=== PATIENT | male | born 2000 | race African-American/Black ===

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

== ENCOUNTER 2023-10-27 11:30 | Emergency (ER) | payer OTHER, SELFPAY ==
[2023-10-27] VITALS (17 sets, daily range): BP systolic 101–142; BP diastolic 52–101; PULSE 66–115; RESP 11–24; TEMP 36.6; O2SAT 96–100
--- NOTE | 2023-10-27 11:51 | PC.NURSE ---
Mother states pt has had a lot of changes the last 2 months. 2 family members , pt had finals. Mother states pt will have staring episodes where she feels he is looking straight thru her. Mother reports pt has never had these symptoms before.
[2023-10-27 12:13] LABS: Basophils Absolute Auto 0.1 K/mm3 (0.0-0.1); Basophils Percent Auto 0.8 % (0.2-1.2); Eosinophils Percent Auto 0.3 % (0-4.4); Hematocrit 42.6 % (42.0-52.0); Hemoglobin 14.5 g/dL (14.0-18.0); Immature Granulocyte Absolute 0.02 K/mm3 (0.00-0.031); Immature Granulocyte Percent A 0.3 % (0-0.5); Lymphocytes Absolute Auto 1.48 K/mm3 (0.9-3.2); Lymphocytes Percent Auto 18.5 % (18.3-44.2); Mean Corpuscular Volume 85.2 fl (80-100); Mean Platelet Volume 12.1 fl (7.4-10.4); Monocytes Absolute Auto 0.7 K/mm3 (0.1-0.6); Monocytes Percent Auto 9.3 % (2.6-8.5); Neutrophils Absolute Auto 5.7 K/mm3 (1.3-6.7); Neutrophils Percent Auto 70.8 % (45.5-73.1); Platelet Count Result 276 k/mm3 (150-375)
[2023-10-27 12:24] LABS: Ethanol < 10 mg/dL (<10)
[2023-10-27 12:27] LABS: Alanine Aminotransferase 18 U/L (6-50); Albumin Level 4.8 g/dL (3.5-5.1); Alkaline Phosphatase 72 U/L (38-126); Anion Gap 10 mmol/L (8-16); Aspartate Amino Transferase 28 U/L (17-59); Bilirubin,Total 0.8 mg/dL (0.2-1.3); Blood Urea Nitrogen 8 mg/dL (9-20); Calcium 9.8 mg/dL (8.4-10.2); Carbon Dioxide 27 mmol/L (22-30); Chloride 106 mmol/L (98-107); Estimated CRCL calculation 104 ml/min; Estimated Glomerular Filt Rate > 60; Glucose 99 mg/dL (65-110); Potassium 3.7 mmol/L (3.4-5.0); Sodium 143 mmol/L (137-145)
[2023-10-27 12:34] LABS: Appearance Urine Cloudy (Clear); Bacteria Urine None Seen /hpf; Bilirubin Urine 1+ (Negative); Blood Urine Negative (Negative); Color Urine Dark Yellow (Yellow); Glucose Urine UA Negative (Negative); Ketones Urine 1+ mg/dL (Negative); Leukocyte Esterase Ur Trace LEU/UL (Negative); Nitrate Urine Negative (Negative); Protein Urine 2+ mg/dL (Negative); RBC Urine 0-2 /hpf (0-2); Specific Grav Ur 1.035 (1.001-1.035); Squamous Epithelial Cell Urine None seen /hpf (Few); WBC Urine 0-5 /hpf; pH Urine 7.5 (5.0-9.0)
[2023-10-27 12:44] LABS: Barbiturate Screen Urine Negative (Negative); Benzodiazepines Screen Urine Negative (Negative)
[2023-10-27 12:45] LABS: Amphetamine Screen Urine Negative (Negative); Cannabinoid Screen Urine Negative (Negative); Cocaine Screen Urine Negative (Negative); Opiate Screen Urine Negative (Negative); Phencyclidine Screen Urine Negative (Negative)
[2023-10-27 12:51] LABS: Methadone Screen Urine Negative (Negative)
[2023-10-27 12:56] LABS: Add Urine Microscopic? YES
[2023-10-27 13:24] LABS: Influenza A QL RT-PCR Negative (Negative); Influenza B QL RT-PCR Negative (Negative); RSV RNA, RT-PCR Negative (Negative); SARS-CoV-2 RNA PCR Negative (Negative)
--- NOTE | 2023-10-27 13:31 | ED.GENADULT ---
HPI - General Adult General Chief complaint: Psychiatric Symptoms Stated complaint: anxiety Time Seen by Provider: 10/27/23 12:03 23-year-old male presenting emergency department for evaluation of altered mental status with delusions and paranoia. Family states that the symptoms started approximately 1 week ago. Patient may have an underlying history of autism but has no prior history of schizophrenia or mental health disorders. Family reports that there is a family history of schizophrenia. Patient has been undergoing a lot of stress lately and had 2 family members and recently had finals at [employer]. Related Data Home Medications Medication Instructions Recorded Confirmed fluoxetine 20 mg capsule 20 mg PO DAILY 12/04/19 12/04/19 Allergies Allergy/AdvReac Type Severity Reaction Status Date / Time No Known Allergies Allergy Verified 10/27/23 11:50 Review of Systems Review of Systems: All systems reviewed & are unremarkable except as noted in HPI and below PMFSH Social History Social History Substance use type: does not use Exam Narrative: APPEARANCE: Psychomotor agitation HEAD: normocephalic, atraumatic. EYES: PERRLA/EOMI, conjunctivae clear. NOSE: Normal no drainage EARS:TMS clear with good light reflex. THROAT: Pharynx clear, no exudate. NECK: Supple. No adenopathy, no masses. RESPIRATORY: Airway patent, respirations nonlabored. Clear to auscultation bilaterally, no rales, rhonchi, wheezing. CARDIOVASCULAR: Regular rate and rhythm without murmurs rubs or gallops. ABDOMINAL: Soft, nontender, nondistended, normal bowel sounds MUSCULOSKELETAL: Moves all extremities. Strength/ROM intact, No edema, No calf tenderness. NEURO: Alert. Cranial nerves II through XII intact. Grossly intact SKIN: Warm, dry. Normal Color Psych: Agitated with paranoid delusions Course Course Emergency Course: 23-year-old male presented to ED for evaluation of altered mental status. Patient appears to be having 1st episode of schizophrenia. Patient is afebrile no leukocytosis and a stable hemoglobin. No significant abnormalities the patient's CMP UA negative patient was negative for COVID RSV and flu and influenza and patient had a negative drug screen. Patient was evaluated by crisis counselors and patient was advised to have involuntary placement. Patient was accepted for placement and at transportation is pending and midnight. Vital Signs Vital signs: Vital Signs Temperature 97.9 F 10/27/23 11:38 Pulse Rate 115 H 01/15/24 11:38 Respiratory Rate 18 10/27/23 11:38 Blood Pressure 142/101 H 10/27/23 11:38 Pulse Oximetry 10/27/23 11:38 Oxygen Delivery Room Air 10/27/23 11:38 Temperature 97.9 F 10/27/23 11:38 Pulse Rate 66 10/27/23 19:38 Respiratory Rate 15 10/27/23 19:38 Blood Pressure 104/52 L 10/27/23 19:38 Pulse Oximetry 100 10/27/23 19:38 Oxygen Delivery Room Air 10/27/23 11:38 Medical Decision Making Vital Signs Vital Signs: Vital Signs Temperature 97.9 F 10/27/23 11:38 Pulse Rate 115 H 10/27/23 11:38 Respiratory Rate 10/27/23 11:38 Blood Pressure 142/101 H 10/27/23 11:38 Pulse Oximetry 10/27/23 11:38 Oxygen Delivery Room Air 10/27/23 11:38 Temperature 97.9 F 10/27/23 11:38 Pulse Rate 10/27/23 19:38 Respiratory Rate 10/27/23 19:38 Blood Pressure 104/52 L 10/27/23 19:38 Pulse Oximetry 10/27/23 19:38 Oxygen Delivery Room Air 10/27/23 11:38 Lab Data 10/27/23 11:56 10/27/23 11:56 Labs: Lab Results 10/27/23 10/27/23 10/27/23 Range/Units 11:56 12:07 12:22 WBC 8.0 (4.5-10.0) K/mm3 RBC 5.00 (4.6-6.20) M/mm3 Hgb 14.5 (14.0-18.0) g/dL Hct 42.6 (42.0-52.0) % MCV 85.2 (80-100) fl MCH 29.0 (26-34) pg MCHC 34.0 (32-36) g/dl RDW 13.0 (11.5-14.5) % Plt Count 276 (150-375) k/mm3 MPV 12.1 H (7.4-10.4) fl Immat
--- NOTE | 2023-10-27 13:33 | ECG_ITS ---
Measurements Intervals [place] Rate: 65 P: 57 AK: 153 QRS: 76 QRSD: 99 T: 61 QT: 378 QTc: 395 Interpretive Statements SINUS RHYTHM WITH MARKED SINUS ARRHYTHMIA INCOMPLETE RIGHT BUNDLE BRANCH BLOCK BASELINE WANDER- II, III BORDERLINE ECG NO PREVIOUS ECG AVAILABLE FOR COMPARISON Electronically Signed On 10-27-2023 14:09:35 [employer]ACH[employer]PERATOR HELPER by Lucho Merrill D.O.
[2023-10-27] MEDS: HALOPERIDOL LACTATE 5 MG/ML VIAL IM (13:58)
--- NOTE | 2023-10-28 03:49 | PC.NURSE ---
Report given to Felicia VALDEZ at [facility]; advised that transport for this patient will not happen until 929 per ambulance service. Phone number for call back [phone].
--- NOTE | 2023-10-28 08:27 | PC.NURSE ---
called dietary and ordered a breakfast tray for pt at this time Sitter at bedside
[2023-10-28 08:33] VITALS: BP 139/86; PULSE 99; RESP 17; TEMP 36.8; O2SAT 100
== END 2023-10-28 10:44 ==
PROVIDERS: Emergency Provider Emergency Medicine
DX: F23 Brief psychotic disorder (principal); Z20.822 Contact with and (suspected) exposure to COVID-19
CPT/HCPCS: 36415; 80053; 80307; 81001; 84443; 85025; 87637; 93005; 96372; 99285; J1630

== ENCOUNTER 2024-02-11 05:41 | Emergency (ER) | payer OTHER, SELFPAY ==
--- NOTE | ~2024-02-11 | XR_ITS ---
Portable chest x-ray Comparison: None Clinical History: Chest pain Findings: Lungs are clear, without focal consolidation or pleural effusion. Cardiomediastinal silho uette is unremarkable. Bones and soft tissues are unremarkable. Impression: Normal chest. Reviewed, dictated and finalized at location M. Impression: Normal chest.
[2024-02-11 05:52] VITALS: BP 115/81; PULSE 67; RESP 13; TEMP 36.6; O2SAT 99
--- NOTE | 2024-02-11 06:13 | ECG_ITS ---
SEE SCANNED COPY FOR CONFIRMED REPORT MTDD
--- NOTE | 2024-02-11 06:13 | ED.GENADULT ---
HPI - General Adult General Chief complaint: Unspecified Stated complaint: chest heaviness Time Seen by Provider: 02/11/24 05:52 History of Present Illness HPI narrative: This is a 23-year-old male w/ a hx of psychiatric illness presenting ED with chief complaint of chest heaviness. Patient says that this has been going on x4 months. He says that feels there is nothing inside of his chest. He says that he does not feel things his chest like other people do. It is not actual pain. He does not have fevers, shortness of breath, or lower extremity edema. Patient denies suicidal homicidal ideations. He denies hallucinations. Denies use of drugs or alcohol. Related Data Home Medications Medication Instructions Recorded Confirmed fluoxetine 20 mg capsule 20 mg PO DAILY 12/04/19 12/04/19 Allergies Allergy/AdvReac Type Severity Reaction Status Date / Time No Known Allergies Allergy Verified 10/27/23 11:50 [facility] Social History Social History Substance use type: does not use Exam Narrative: APPEARANCE: No apparent distress. Patient speaks very slowly during the interview Head: atraumatic. EYES: EOMI, NOSE: Atraumatic NECK: Trachea midline RESPIRATORY: No increased rate of breathing clear to auscultation CARDIOVASCULAR: RRR, no peripheral edema ABDOMINAL: Non-distended soft nontender MUSCULOSKELETAl: No obvious deformities NEURO: Alert. Moving 4/4 extremities SKIN:: Warm, dry. Normal color PSYCHIATRIC: Normal affect Course Vital Signs Vital signs: Vital Signs Temperature 97.9 F 02/11/24 05:52 Pulse Rate 67 02/11/24 05:52 Respiratory Rate 13 02/11/24 05:52 Blood Pressure 115/81 02/11/24 05:52 Pulse Oximetry 99 02/11/24 05:52 Oxygen Delivery Room Air 02/11/24 05:52 Temperature 97.9 F 02/11/24 05:52 Pulse Rate 67 02/11/24 05:52 Respiratory Rate 13 02/11/24 05:52 Blood Pressure 115/81 02/11/24 05:52 Pulse Oximetry 99 02/11/24 05:52 Oxygen Delivery Room Air 02/11/24 05:52 Medical Decision Making MDM Narrative Medical decision making narrative: -Course: 23-year-old male presenting with chest heaviness for 4 months. This coincides with the patient was diagnosed with new psychiatric illness. Patient speaks very slowly during the interview. vital signs are stable. well appearing. Chest x-ray and EKG were unremarkable. Patient is not suicidal homicidal or overtly psychotic. patient is safe for discharge with his primary care physician and psychiatrist. -DDX includes but is not limited to: anxiety, psychiatric illness, chest wall pain, asthma, ACS, pneumothorax -Co-morbidities complicating care: psychiatric illness -Independent interpretation of studies: chest x-ray normal. Independent EKG interpretation: Rhythm [sinus], Rate [61], [place] -[normal], [place] -[normal], QRS [narrow], QTC [normal], T waves -[negative for concerning inversions], ST Segments - [Negative for concerning elevations] Final interpretations: [Normal Sinus Rhythm] -Dx tests considered but not ordered: Perc negative -Shared decision making / Disposition:discharged. Vital Signs Vital Signs: Vital Signs Temperature 97.9 F 02/11/24 05:52 Pulse Rate 67 02/11/24 05:52 Respiratory Rate 13 02/11/24 05:52 Blood Pressure 115/81 02/11/24 05:52 Pulse Oximetry 99 02/11/24 05:52 Oxygen Delivery Room Air 02/11/24 05:52 Temperature 97.9 F 02/11/24 05:52 Pulse Rate 67 02/11/24 05:52 Respiratory Rate 13 02/11/24 05:52 Blood Pressure 115/81 02/11/24 05:52 Pulse Oximetry 99 02/11/24 05:52 Oxygen Delivery Room Air 02/11/24 05:52 Discharge Plan Discharge Clinical Impression: Anxiety Patient Disposition: Home, Self-Care Condition: Stable Instructions: Antibiotic Form, Chest Pain (ED), Anxiety (ED) Additional Instructions: Please follow-up with your primary care physician and your psychiatrist. Please continue to take her psyc
[2024-02-11 07:04] VITALS: BP 114/79; PULSE 68; RESP 14; O2SAT 100
== END 2024-02-11 07:07 | disposition home or self-care (01) ==
PROVIDERS: Emergency Provider Emergency Medicine
DX: F41.9 Anxiety disorder, unspecified (principal); I45.10 Unspecified right bundle-branch block
CPT/HCPCS: 71045; 93005; 99284

== ENCOUNTER 2024-02-27 21:27 | Emergency (ER) | payer OTHER, SELFPAY ==
--- NOTE | ~2024-02-27 | CT_ITS ---
EXAMINATION: CT abdomen pelvis w con DATE: 02/27/2024 22:56 INDICATION: Generalized abdominal pain. TECHNIQUE: Computed tomography (CT) of the abdomen and pelvis was performed with 100 mL Omnipaque 350 intravenous contrast. Automated exposure control and iterative reconstruction technique were employe d. The dose-length product was 251.79 mGy-cm. COMPARISON: None. FINDINGS: The visualized portions of the lung bases are clear without pneumonia or pleural effusion. The heart size is normal. No pericardial effusion. The liver, gallbladder, spleen, pancreas, adrenal glands, and kidneys are normal. There are no dilated loops of bowel. The appendix is not visualized. There are no pathologically enlarged lymph nodes. There is no free intraperitoneal fluid. There is mi ld lumbar spondylosis. IMPRESSION: 1. No etiology for the patient's symptoms. Reviewed, dictated and finalized at location E.
--- NOTE | 2024-02-27 21:35 | ECG_ITS ---
SEE SCANNED COPY FOR CONFIRMED REPORT MTDD
[2024-02-27 21:36] VITALS: BP 117/81; PULSE 71; RESP 16; TEMP 36.6; O2SAT 98
[2024-02-27 22:09] LABS: Basophils Absolute Auto 0.1 K/mm3 (0.0-0.1); Basophils Percent Auto 0.8 % (0.2-1.2); Eosinophils Absolute Auto 0.4 K/mm3 (0-0.3); Eosinophils Percent Auto 4.2 % (0-4.4); Hemoglobin 14.9 g/dL (14.0-18.0); Immature Granulocyte Absolute 0.01 K/mm3 (0.00-0.031); Immature Granulocyte Percent A 0.1 % (0-0.5); Lymphocytes Absolute Auto 3.15 K/mm3 (0.9-3.2); Lymphocytes Percent Auto 32.7 % (18.3-44.2); Mean Corpuscular HGB Conc 33.9 g/dl (32-36); Mean Corpuscular Hemoglobin 29.4 pg (26-34); Mean Corpuscular Volume 86.8 fl (80-100); Mean Platelet Volume 12.1 fl (7.4-10.4); Monocytes Absolute Auto 0.9 K/mm3 (0.1-0.6); Monocytes Percent Auto 8.8 % (2.6-8.5); Neutrophils Absolute Auto 5.1 K/mm3 (1.3-6.7); Neutrophils Percent Auto 53.4 % (45.5-73.1); Platelet Count Result 219 k/mm3 (150-375); Red Blood Count 5.07 M/mm3 (4.6-6.20); Red Cell Distribution Width 13.2 % (11.5-14.5); White Blood Count 9.6 K/mm3 (4.5-10.0)
[2024-02-27 22:10] LABS: Appearance Urine Clear (Clear); Bilirubin Urine Negative (Negative); Blood Urine Negative (Negative); Color Urine Yellow (Yellow); Glucose Urine UA Negative (Negative); Ketones Urine Trace mg/dL (Negative); Leukocyte Esterase Ur Negative LEU/UL (Negative); Nitrate Urine Negative (Negative); Protein Urine Negative (Negative); Specific Grav Ur 1.028 (1.001-1.035)
[2024-02-27 22:14] LABS: Add Urine Microscopic? NO
[2024-02-27 22:18] LABS: Alanine Aminotransferase 31 U/L (6-50); Albumin Level 4.6 g/dL (3.5-5.1); Alkaline Phosphatase 61 U/L (38-126); Anion Gap 8 mmol/L (4-12); Aspartate Amino Transferase 31 U/L (17-59); Bilirubin,Total 0.4 mg/dL (0.2-1.3); Blood Urea Nitrogen 12 mg/dL (9-20); Calcium 9.4 mg/dL (8.4-10.2); Carbon Dioxide 25 mmol/L (22-30); Chloride 106 mmol/L (98-107); Estimated CRCL calculation 112 ml/min; Estimated Glomerular Filt Rate > 60; Glucose 134 mg/dL (65-110); Lipase 49 U/L (23-300); Potassium 3.8 mmol/L (3.4-5.0); Sodium 139 mmol/L (137-145)
[2024-02-27] MEDS: DICYCLOMINE HCL 10 MG CAPSULE 20 MG PO (23:03)
[2024-02-27] MEDS: ACETAMINOPHEN 500 MG TABLET 1000 MG PO (23:03)
[2024-02-27] MEDS: BELLADONNA ALK/PHENOB ELIX 10 ML, MAG HYDROX/ALUMINUM HYD/SIMETH 30 ML, LIDOCAINE HCL 2... PO (23:03)
[2024-02-27 23:16] VITALS: PULSE 56
[2024-02-27 23:17] VITALS: BP 116/79; PULSE 62; RESP 10; O2SAT 100
--- NOTE | 2024-02-27 23:53 | ED.ABDPAIN ---
HPI - Abdominal Pain General Chief Complaint: Abdominal Pain Stated Complaint: abd pain Time Seen by Provider: 02/27/24 21:32 Source: patient Mode of arrival: ambulatory Limitations: no limitations History of Present Illness HPI narrative: Patient is a 23-year-old male who presents the ED with report of upper abdominal pain. Patient reports having pain intermittently over the last 2 weeks. Present throughout his upper abdomen, intermittently radiates to his bilateral flank regions. Hasn't tried anything for the pain. Denies any other symptoms. Denies CP, N/V/D, constipation, urinary complaints, fevers. Related Data Home Medications Medication Instructions Recorded Confirmed fluoxetine 20 mg capsule 20 mg PO DAILY 12/04/19 12/04/19 Allergies Allergy/AdvReac Type Severity Reaction Status Date / Time No Known Allergies Allergy Verified 10/27/23 11:50 Review of Systems Review of Systems: CONSTITUTIONAL: Denies fever, chills, or sweats. GASTROINTESTINAL: See HPI. GENITOURINARY: Denies dysuria or hematuria. MUSCULOSKELETAL: Reports bilateral flank pain. All systems reviewed & are unremarkable except as noted in HPI and below [facility] Social History Social History Substance use type: does not use Exam Narrative: GENERAL: Well appearing, thin, non-toxic, in no acute distress. HEAD: Normocephalic, atraumatic. RESPIRATORY: Airway patent, respirations nonlabored. Clear to auscultation bilaterally, no rales, rhonchi, wheezing. CARDIOVASCULAR: Regular rate and rhythm ABDOMINAL: Soft, minimal tenderness in epigastric region, nondistended. Normoactive BS. MUSCULOSKELETAL: Moves all extremities. No gross deformities. SKIN: Warm, dry, normal color. NEURO: A&O X3. Speech clear. PSYCHIATRIC: Appropriate mood and affect. Normal interaction. Course Vital Signs Vital signs: Vital Signs Temperature 98 F 02/27/24 21:36 Pulse Rate 71 02/27/24 21:36 Respiratory Rate 16 02/27/24 21:36 Blood Pressure 117/81 02/27/24 21:36 Pulse Oximetry 98 02/27/24 21:36 Oxygen Delivery Room Air 02/27/24 21:36 Temperature 98 F 02/27/24 21:36 Pulse Rate 59 L 02/28/24 00:01 Respiratory Rate 11 L 02/28/24 00:01 Blood Pressure 105/70 02/28/24 00:01 Pulse Oximetry 99 02/28/24 00:01 Oxygen Delivery Room Air 02/27/24 21:36 MDM - Abdominal Pain MDM Narrative Medical decision making narrative: Patient presented to ED with 2 week history of intermittent upper abdominal pain. No other associated symptoms. Vital signs are stable upon arrival. Patient no acute distress. Basic laboratory studies are unremarkable. Normal LFTs and lipase. Urinalysis clear. CT scan of abdomen pelvis was updated and unremarkable. No etiology for patient's symptoms. Patient was updated on lab and imaging findings. Resting comfortably on re-evaluation. Feels slightly improved with supportive therapy. Discussed possibility of gastritis/GERD, will prescribe omeprazole for home. Advised patient have follow-up with PCP for further evaluation. Given return precautions. He agrees with plan. Discharged in stable condition. Medical Records Attestation: I reviewed the patient's medical records. Lab Data Attestation: I reviewed the patient's lab results. 02/27/24 22:01 02/27/24 22:01 Labs: Lab Results 02/27/24 Range/Units 22:01 WBC 9.6 (4.5-10.0) K/mm3 RBC 5.07 (4.6-6.20) M/mm3 Hgb 14.9 (14.0-18.0) g/dL Hct 44.0 (42.0-52.0) % MCV 86.8 (80-100) fl MCH 29.4 (26-34) pg MCHC 33.9 (32-36) g/dl RDW 13.2 (11.5-14.5) % Plt Count 219 (150-375) k/mm3 MPV 12.1 H (7.4-10.4) fl Immature Gran % (Auto) 0.1 (0-0.5) % Neut % (Auto) 53.4 (45.5-73.1) % Lymph % (Auto) 32.7 (18.3-44.2) % [place] % (Auto) 8.8 H (2.6-8.5) % Eos % (Auto) 4.2 (0-4.4) % Baso % (Auto) 0.8 (0.2-1.2) % Lymph # (Aut
[2024-02-28 00:01] VITALS: BP 105/70; PULSE 59; RESP 11; O2SAT 99
== END 2024-02-28 00:18 | disposition home or self-care (01) ==
PROVIDERS: Emergency Provider Physician Assistant; PCP Emergency Medicine
DX: R10.10 Upper abdominal pain, unspecified (principal)
CPT/HCPCS: 36415; 74177; 80053; 81003; 83690; 85025; 93005; 99284; A9270; Q9967

== ENCOUNTER 2024-03-25 07:28 | Emergency (ER) | payer OTHER, SELFPAY ==
[2024-03-25 08:03] LABS: Basophils Percent Auto 0.4 % (0.2-1.2); Hematocrit 39.6 % (42.0-52.0); Hemoglobin 13.5 g/dL (14.0-18.0); Immature Granulocyte Absolute 0.02 K/mm3 (0.00-0.031); Immature Granulocyte Percent A 0.2 % (0-0.5); Lymphocytes Absolute Auto 1.16 K/mm3 (0.9-3.2); Lymphocytes Percent Auto 12.8 % (18.3-44.2); Mean Corpuscular HGB Conc 34.1 g/dl (32-36); Mean Platelet Volume 12.6 fl (7.4-10.4); Monocytes Absolute Auto 0.7 K/mm3 (0.1-0.6); Monocytes Percent Auto 7.4 % (2.6-8.5); Neutrophils Absolute Auto 7.2 K/mm3 (1.3-6.7); Neutrophils Percent Auto 79.2 % (45.5-73.1); Platelet Count Result 208 k/mm3 (150-375); Red Blood Count 4.66 M/mm3 (4.6-6.20); Red Cell Distribution Width 12.9 % (11.5-14.5); White Blood Count 9.1 K/mm3 (4.5-10.0)
[2024-03-25 08:06] VITALS: BP 137/82; PULSE 108; RESP 16; TEMP 37.1; O2SAT 100
[2024-03-25 08:15] LABS: Alanine Aminotransferase 32 U/L (6-50); Albumin Level 4.9 g/dL (3.5-5.1); Alkaline Phosphatase 56 U/L (38-126); Anion Gap 10 mmol/L (4-12); Aspartate Amino Transferase 32 U/L (17-59); Bilirubin,Total 0.6 mg/dL (0.2-1.3); Blood Urea Nitrogen 14 mg/dL (9-20); Calcium 9.3 mg/dL (8.4-10.2); Carbon Dioxide 22 mmol/L (22-30); Chloride 107 mmol/L (98-107); Estimated CRCL calculation 110 ml/min; Estimated Glomerular Filt Rate > 60; Glucose 119 mg/dL (65-110); Potassium 3.5 mmol/L (3.4-5.0); Sodium 139 mmol/L (137-145)
[2024-03-25 08:17] LABS: Acetaminophen < 10 ug/mL (10-30); Ethanol < 10 mg/dL (<10); Salicylate < 1.0 mg/dL (2-20)
[2024-03-25 08:42] LABS: Influenza A QL RT-PCR Negative (Negative); Influenza B QL RT-PCR Negative (Negative); RSV RNA, RT-PCR Negative (Negative); SARS-CoV-2 RNA PCR Negative (Negative)
[2024-03-25 08:52] LABS: Appearance Urine Clear (Clear); Bilirubin Urine Negative (Negative); Blood Urine Negative (Negative); Color Urine Yellow (Yellow); Glucose Urine UA Negative (Negative); Ketones Urine Trace mg/dL (Negative); Leukocyte Esterase Ur Negative LEU/UL (Negative); Nitrate Urine Negative (Negative); Protein Urine Negative (Negative); Specific Grav Ur 1.022 (1.001-1.035)
[2024-03-25 09:00] LABS: Add Urine Microscopic? NO
--- NOTE | 2024-03-25 09:16 | ED.GENADULT ---
HPI - General Adult General Chief complaint: Psychiatric Symptoms Stated complaint: psych evaluation Time Seen by Provider: 03/25/24 07:46 Source: patient and family Mode of arrival: ambulatory Limitations: altered mental status History of Present Illness HPI narrative: 23-year-old brought in by mom with a complaint of having suicidal ideations. Mom states that he was diagnosed psychosis with personality disorder several years ago for the past few days he has been acting bizarre he was seen at [facility] yesterday and started on Ablify , woke up this morning with feces all over him self and in the toilet, she states that he has been hearing voices, talking to himself. Not much of history can be obtained from the patient Onset (ago): week(s) Related Data Home Medications Medication Instructions Recorded Confirmed fluoxetine 20 mg capsule 20 mg PO DAILY 12/04/19 12/04/19 Allergies Allergy/AdvReac Type Severity Reaction Status Date / Time No Known Allergies Allergy Verified 03/25/24 07:29 Review of Systems Review of Systems: ROS unobtainable: Yes unobtainable due to medical condition PMFSH Social History Social History Substance use type: does not use Exam Narrative: GENERAL: Well-appearing, well-nourished, and in no acute distress. Patient doing jumping jacks in the room had to redirect him several times HEAD: Normocephalic, atraumatic. EYES: PERRLA and EOMI. ENT: Nares clear, no rhinorrhea or epistaxis. Mucous membranes moist. NECK: Supple. CHEST: Clear to auscultation. No respiratory distress. HEART: Regular rate and rhythm. No murmur heard. Normal peripheral pulses. ABDOMEN: Soft, nontender, nondistended, normal active bowel sounds. EXTREMITIES: Normal range of motion. No edema. SKIN: Warm, dry, no rash. NEURO: No focal deficits. Alert and oriented PSYCH: Normal mood and affect. Course Course Emergency Course: Is medically cleared his lab work is unremarkable will consult Behavioral Health for evaluation and possible placed Vital Signs Vital signs: Vital Signs Temperature 37.1 C 03/25/24 08:06 Pulse Rate 108 H 03/25/24 08:06 Respiratory Rate 16 03/25/24 08:06 Blood Pressure 137/82 03/25/24 08:06 Pulse Oximetry 100 03/25/24 08:06 Oxygen Delivery Room Air 03/25/24 08:06 Temperature 36.9 C 03/25/24 19:08 Pulse Rate 86 03/26/24 07:42 Respiratory Rate 16 03/26/24 07:42 Blood Pressure 124/95 H 03/26/24 07:42 Pulse Oximetry 100 03/26/24 07:42 Oxygen Delivery Room Air 03/25/24 08:06 Medical Decision Making Vital Signs Vital Signs: Vital Signs Temperature 37.1 C 03/25/24 08:06 Pulse Rate 108 H 03/25/24 08:06 Respiratory Rate 16 03/25/24 08:06 Blood Pressure 137/82 03/25/24 08:06 Pulse Oximetry 100 03/25/24 08:06 Oxygen Delivery Room Air 03/25/24 08:06 Temperature 36.9 C 03/25/24 19:08 Pulse Rate 86 03/26/24 07:42 Respiratory Rate 16 03/26/24 07:42 Blood Pressure 124/95 H 03/26/24 07:42 Pulse Oximetry 100 03/26/24 07:42 Oxygen Delivery Room Air 03/25/24 08:06 Lab Data 03/25/24 07:54 03/25/24 07:54 Labs: Lab Results 03/25/24 03/25/24 03/25/24 Range/Units 07:54 07:54 07:54 WBC 9.1 (4.5-10.0) K/mm3 RBC 4.66 (4.6-6.20) M/mm3 Hgb 13.5 L (14.0-18.0) g/dL Hct 39.6 L (42.0-52.0) % MCV 85.0 (80-100) fl MCH 29.0 (26-34) pg MCHC 34.1 (32-36) g/dl RDW 12.9 (11.5-14.5) % Plt Count 208 (150-375) k/mm3 MPV 12.6 H (7.4-10.4) fl Immature Gran % (Auto) 0.2 (0-0.5) % Neut % (Auto) 79.2 H (45.5-73.1) % Lymph % (Auto) 12.8 L (18.3-44.2) % [place] % (Auto) 7.4 (2.6-8.5) % Eos % (Auto) 0.0 (0-4.4) % Baso % (Auto) 0.4 (0.2-1.2) % Lymph # (Auto) 1.16 (0.9-3.2) K/mm3 [place] # (Auto) 0.7 H (0.1-0.6) K/mm3 Eos # (Auto) 0.0
[2024-03-25 09:24] LABS: Amphetamine Screen Urine Negative (Negative); Barbiturate Screen Urine Negative (Negative); Benzodiazepines Screen Urine Negative (Negative); Cannabinoid Screen Urine Negative (Negative); Cocaine Screen Urine Negative (Negative); Methadone Screen Urine Negative (Negative); Opiate Screen Urine Negative (Negative); Phencyclidine Screen Urine Negative (Negative)
--- NOTE | 2024-03-25 18:13 | PC.NURSE ---
1128 spoke with [facility] (Claudia VALDEZ) who was requesting resulted tox screen, and certificate that is filled out again by crisis staff 1200- spoke with Crisis- they stated that they sent a new certificate 1303 - fax sent to [facility] with information that they requested. 1618- Called and spoke to [facility]ang (Ade VALDEZ) they can not accept involuntary 1620- Called and spoke with [facility] (Claudia) States that due to acuity they were unable to accept the patient and have him have his own room which the patient will need 1622- spoke with Maci Rogers RN) stated that they are unable to accept the patient 1650- Charge nurse (Chau) Called and spoke with [facility] [phone] - Fax with certificate, chart and other paperwork for patient to be considered for their facility
--- NOTE | 2024-03-25 19:01 | PC.NURSE ---
1900- Spoke with Alicia with [facility] who has been calling as far as [place] to look for placement for the patient. Has been unable to place the patient at this time
[2024-03-25 19:08] VITALS: BP 129/99; PULSE 90; RESP 18; TEMP 36.9; O2SAT 98
--- NOTE | 2024-03-25 22:58 | PC.NURSE ---
1017 Alicia called from Crisis and given a patient update. They will continue calling and attempting to place him.
--- NOTE | 2024-03-26 01:25 | PC.NURSE ---
this rn assumed care of patient. this rn took patient report from antonio mann.
[2024-03-26 02:17] VITALS: BP 135/89; PULSE 70; RESP 18; O2SAT 100
--- NOTE | 2024-03-26 07:13 | PC.NURSE ---
[facility] w/ [facility] pt transport, stated EMS was on the way and ETA to [facility] would be [phone]
[2024-03-26 07:42] VITALS: BP 124/95; PULSE 86; RESP 16; O2SAT 100
== END 2024-03-26 09:05 ==
PROVIDERS: Emergency Provider Family Medicine; PCP Emergency Medicine
DX: F29 Unspecified psychosis not due to a substance or known physiological condition (principal); Z20.822 Contact with and (suspected) exposure to COVID-19
CPT/HCPCS: 36415; 80053; 80307; 81003; 84443; 85025; 87637; 99285

== ENCOUNTER 2024-05-07 17:31 | Emergency (ER) | payer OTHER, SELFPAY ==
[2024-05-07 18:22] VITALS: BP 125/82; PULSE 80; RESP 20; TEMP 36.6; O2SAT 99
--- NOTE | 2024-05-07 18:23 | ED.PSYCH ---
HPI - Psych General Chief Complaint: Psychiatric Symptoms Stated Complaint: med refill Time Seen by Provider: 05/07/24 18:23 Source: patient Mode of arrival: ambulatory Limitations: no limitations History of Present Illness HPI Narrative: this is a 21-year-old male that presents to the emergency department for a medication refill. Reports he lives in [place]. He is down here helping his mother. He ran out of his olanzapine. He takes 15 mg daily. Has no other complaints. Related Data Home Medications Medication Instructions Recorded Confirmed fluoxetine 20 mg capsule 20 mg PO DAILY 12/04/19 12/04/19 Allergies Allergy/AdvReac Type Severity Reaction Status Date / Time No Known Allergies Allergy Verified 05/07/24 18:25 Review of Systems Review of Systems: CONSTITUTIONAL: Denies fever PSYCHIATRIC: Reports depression. All systems reviewed & are unremarkable except as noted in HPI and below PMFSH Past Medical History Medical History (Updated 05/07/24 @ 18:28 by Katie Rodriguez PA-C) History of psychiatric disorder Social History Social History Substance use type: does not use Exam Narrative: GENERAL: Well-appearing, well-nourished, and in no acute distress. HEAD: Normocephalic, atraumatic. EYES: EOMI. CHEST: Clear to auscultation. No respiratory distress. No wheezes rales or rhonchi HEART: Regular rate and rhythm. No murmur heard. Normal peripheral pulses. EXTREMITIES: Normal range of motion. No edema. SKIN: Warm, dry, no rash. NEURO: No focal deficits. Alert and oriented x3. PSYCH: Normal mood and affect Course Vital Signs Vital signs: Vital Signs Temperature 97.9 F 05/07/24 18:22 Pulse Rate 80 05/07/24 18:22 Respiratory Rate 20 05/07/24 18:22 Blood Pressure 125/82 05/07/24 18:22 Pulse Oximetry 99 05/07/24 18:22 Oxygen Delivery Room Air 05/07/24 18:22 Temperature 97.9 F 05/07/24 18:22 Pulse Rate 80 05/07/24 18:22 Respiratory Rate 20 05/07/24 18:22 Blood Pressure 125/82 05/07/24 18:22 Pulse Oximetry 99 05/07/24 18:22 Oxygen Delivery Room Air 05/07/24 18:22 MDM - Psych MDM Narrative Medical decision making narrative: patient presents to the emergency department for medication refill. Reports he is out of his olanzapine. He is currently visiting the area to help his mother. Will be given prescription for 1 month and was encouraged to follow up with his doctor for further management. He has no complaints today. His vitals are normal. Differential Diagnosis Differential diagnosis: Likely other ( Medication refill) Critical Care Time Critical Care Time Critical Care Time: No Discharge Plan Discharge Clinical Impression: Medication refill Patient Disposition: Home, Self-Care Condition: Stable Instructions: Olanzapine (By mouth), Medicine Refill (ED) Additional Instructions: Return to the emergency department if you experience fever, chest pain, shortness of breath, abdominal pain with nausea and vomiting, weakness, numbness, thoughts of harming yourself or anyone else, or any other symptoms that are concerning to you. Follow up with primary care doctor for further management Prescriptions: New olanzapine 15 mg tablet 15 mg PO DAILY 30 Days Qty: 30 0RF No Action fluoxetine 20 mg capsule 20 mg PO DAILY codeine-guaifenesin 10-100 mg/5 mL liquid 7.5 ml PO Q6H PRN (Reason: cough) Qty: 118 0RF benzonatate [Tessalon Perles] 100 mg capsule 100 mg PO TID Qty: 20 1RF oseltamivir [Tamiflu] 75 mg capsule 75 mg PO Q12H 5 Days Qty: 10 0RF omeprazole 10 mg capsule,delayed release(DR/EC) 10 mg PO DAILY Qty: 30 0RF Follow-up/Referrals: Tremayne Mcintosh MD [Physician] -
== END 2024-05-07 19:09 | disposition home or self-care (01) ==
LOC: ANHED 18:37
PROVIDERS: Emergency Provider Physician Assistant
DX: F99 Mental disorder, not otherwise specified (principal); Z76.0 Encounter for issue of repeat prescription
CPT/HCPCS: 99281

== ENCOUNTER 2024-05-09 22:37 | Emergency (ER) | payer OTHER, SELFPAY ==
[2024-05-09 22:51] VITALS: BP 122/85; PULSE 92; RESP 17; TEMP 37.1; O2SAT 97
[2024-05-09 23:13] VITALS: BP 112/88; PULSE 75; RESP 18; O2SAT 100
--- NOTE | 2024-05-09 23:46 | ED.GENADULT ---
[facility] - General Adult General Chief complaint: Unspecified Stated complaint: sx of my psychosis fidgety Time Seen by Provider: 05/09/24 23:10 History of Present Illness [facility] narrative: This is a 23-year-old male with a history of unspecified chronic psychiatric illness. Patient states that he has been having increased psychiatric symptoms including not being able to control his body movements, out of body experiences, fidgety and occasionally increased auditory/visual hallucinations. Denies any homicidal or suicidal ideations and is not presently danger to himself or others. History of inpatient psychiatric admissions most recently 1 month prior. Has not missed any medications and was seen in this ED for medication refill 3 days prior for which he has been compliant with his olanzapine. No systemic symptoms and denies any fever, chills, nausea, vomiting, headache abdominal discomfort, chest pain shortness and breath. No new medications otherwise and no ingestions of any kind. Related Data Home Medications Medication Instructions Recorded Confirmed fluoxetine 20 mg capsule 20 mg PO DAILY 12/04/19 12/04/19 Allergies Allergy/AdvReac Type Severity Reaction Status Date / Time No Known Allergies Allergy Verified 05/09/24 23:15 Review of Systems Review of Systems: As reviewed above in the [facility] Past Medical History Medical History History of psychiatric disorder Social History Social History Substance use type: does not use Exam Narrative: GENERAL: [Well-appearing, well-nourished, and in no acute distress.] HEAD: [Normocephalic, atraumatic.] EYES: [PERRLA and EOMI.] ENT: Nares clear, no rhinorrhea or epistaxis. Mucous membranes moist. NECK: Supple. CHEST: [Clear to auscultation. No respiratory distress.] HEART: [Regular rate and rhythm]. No murmur heard. [Normal peripheral pulses.] ABDOMEN: [Soft, nondistended], [nontender], [No rigidity or guarding] EXTREMITIES: Normal range of motion. [No edema.] SKIN: Warm, dry, no rash. NEURO: [No focal deficits]. Alert and oriented [x3.] PSYCH: Pleasant and cooperative but does have a flat affect. Endorses out of body sensation and increased fidgeting/akathisia. Denies homicidal or suicidal ideation. Course Vital Signs Vital signs: Vital Signs Temperature 37.1 C 05/09/24 22:51 Pulse Rate 92 05/09/24 22:51 Respiratory Rate 17 05/09/24 22:51 Blood Pressure 122/85 05/09/24 22:51 Pulse Oximetry 97 05/09/24 22:51 Oxygen Delivery Room Air 05/09/24 22:51 Temperature 37.1 C 05/09/24 22:51 Pulse Rate 75 05/09/24 23:13 Respiratory Rate 18 05/09/24 23:13 Blood Pressure 112/88 05/09/24 23:13 Pulse Oximetry 100 05/09/24 23:13 Oxygen Delivery Room Air 05/09/24 22:51 Medical Decision Making MDM Narrative Medical decision making narrative: This is a well-appearing 23-year-old male with history of unspecified chronic psychiatric illness. He has not missed any medications but states he is having increased psychiatric symptoms including feeling like he is not and is on body or uncontrollable body. Endorses akathisia sensations. No homicidal or suicidal ideation. Appears well and has a normal reassuring set of vitals and unremarkable physical examination otherwise. He is medically cleared for psychiatric evaluation with our crisis team although they did request screening laboratory studies to be obtained. These were obtained in largely within normal limits aside from a TSH that was slightly elevated above the upper limit of normal. Patient was evaluated by the crisis team and deemed stable for discharge with regular outpatient follow-up at this time. Family was reassured and patient was provided discharge instructions and need for follow-up with his primary care provider in addition to his psychia
[2024-05-10 00:42] LABS: Basophils Absolute Auto 0.1 K/mm3 (0.0-0.1); Basophils Percent Auto 0.7 % (0.2-1.2); Eosinophils Absolute Auto 0.4 K/mm3 (0-0.3); Eosinophils Percent Auto 4.2 % (0-4.4); Hematocrit 43.1 % (42.0-52.0); Hemoglobin 14.7 g/dL (14.0-18.0); Immature Granulocyte Absolute 0.03 K/mm3 (0.00-0.031); Immature Granulocyte Percent A 0.3 % (0-0.5); Lymphocytes Absolute Auto 2.84 K/mm3 (0.9-3.2); Lymphocytes Percent Auto 27.4 % (18.3-44.2); Mean Corpuscular HGB Conc 34.1 g/dl (32-36); Mean Corpuscular Hemoglobin 29.9 pg (26-34); Mean Corpuscular Volume 87.8 fl (80-100); Mean Platelet Volume 12.7 fl (7.4-10.4); Monocytes Absolute Auto 1.1 K/mm3 (0.1-0.6); Monocytes Percent Auto 10.1 % (2.6-8.5); Neutrophils Absolute Auto 5.9 K/mm3 (1.3-6.7); Neutrophils Percent Auto 57.3 % (45.5-73.1); Platelet Count Result 198 k/mm3 (150-375); Red Blood Count 4.91 M/mm3 (4.6-6.20); Red Cell Distribution Width 13.4 % (11.5-14.5); White Blood Count 10.4 K/mm3 (4.5-10.0)
[2024-05-10 00:48] LABS: Alanine Aminotransferase 236 U/L (6-50); Albumin Level 4.7 g/dL (3.5-5.1); Alkaline Phosphatase 64 U/L (38-126); Anion Gap 11 mmol/L (4-12); Aspartate Amino Transferase 70 U/L (17-59); Bilirubin,Total 0.4 mg/dL (0.2-1.3); Blood Urea Nitrogen 18 mg/dL (9-20); Calcium 9.2 mg/dL (8.4-10.2); Carbon Dioxide 26 mmol/L (22-30); Chloride 102 mmol/L (98-107); Estimated CRCL calculation 102 ml/min; Estimated Glomerular Filt Rate > 60; Ethanol < 10 mg/dL (<10); Glucose 118 mg/dL (65-110); Potassium 4.1 mmol/L (3.4-5.0); Sodium 139 mmol/L (137-145)
[2024-05-10 00:53] LABS: Appearance Urine Clear (Clear); Bacteria Urine None Seen /hpf; Bilirubin Urine Negative (Negative); Blood Urine Negative (Negative); Color Urine Yellow (Yellow); Glucose Urine UA Negative (Negative); Ketones Urine Trace mg/dL (Negative); Leukocyte Esterase Ur Negative LEU/UL (Negative); Nitrate Urine Negative (Negative); Non Pathogenic Casts 0-2; Protein Urine Trace mg/dL (Negative); RBC Urine 0-2 /hpf (0-2); Specific Grav Ur 1.037 (1.001-1.035); Squamous Epithelial Cell Urine None Seen /hpf (Few); WBC Urine 0-5 /hpf (0-3)
[2024-05-10 00:54] LABS: Add Urine Microscopic? YES
[2024-05-10 00:56] LABS: Amphetamine Screen Urine Negative (Negative); Barbiturate Screen Urine Negative (Negative); Benzodiazepines Screen Urine Negative (Negative); Cannabinoid Screen Urine Negative (Negative); Cocaine Screen Urine Negative (Negative); Methadone Screen Urine Negative (Negative); Opiate Screen Urine Negative (Negative); Phencyclidine Screen Urine Negative (Negative)
[2024-05-10 02:34] LABS: Influenza A QL RT-PCR Negative (Negative); Influenza B QL RT-PCR Negative (Negative); SARS-CoV-2 RNA PCR Negative (Negative)
[2024-05-10 03:18] VITALS: BP 122/80; PULSE 65; RESP 16; O2SAT 100
[2024-05-10 04:13] LABS: Free T4 Free Thyroxine Reflex 0.97 ng/dL (0.78-2.19)
[2024-05-10 04:39] LABS: Total Triiodothyronine (T3) 1.96 NG/ML (0.97-1.69)
== END 2024-05-10 03:18 | disposition home or self-care (01) ==
PROVIDERS: Emergency Provider Student in an Organized Health Care Education/Training Program
DX: F09 Unspecified mental disorder due to known physiological condition (principal); R94.6 Abnormal results of thyroid function studies
CPT/HCPCS: 36415; 80053; 80307; 81001; 84439; 84443; 84480; 85025; 87636; 99284